=== PATIENT | male | born 1980 | race Caucasian/White ===

== ENCOUNTER 2017-09-20 13:56 | Emergency (ER) | payer BC, SELFPAY ==
[~2017-09-20] VITALS: Ht 172.7 cm; Wt 124.7 kg
[2017-09-20] MEDS ORDERED: HORMONE REPLACEMENT (14:05)
[2017-09-20] MEDS ORDERED: PROGESTERONE100 MG PO (14:06)
[2017-09-20] MEDS ORDERED: ESTRADIOL 1 MG T1 M1 PO (14:06)
[2017-09-20] MEDS ORDERED: ALDACTONE50 MG PO (14:06)
[2017-09-20] MEDS ORDERED: PROSCAR 5MG TABL5 M1 PO (14:07)
[2017-09-20 14:45] LABS: ABSOLUTE BASOPHILS 0.1 thou/uL (0.0-0.2); ABSOLUTE EOSINOPHILS 0.2 thou/uL (0.0-0.7); ABSOLUTE LYMPHOCYTES 1.7 thou/uL (0.8-5.3); ABSOLUTE MONOCYTES 0.9 thou/uL (0.0-1.2); ABSOLUTE NEUTROPHILS 8.6 thou/uL (1.6-8.1); BASOPHILS 0.6 %; EOSINOPHILS 1.4 %; HEMATOCRIT 42.3 % (42.0-52.0); LYMPHOCYTES 15.2 %; MCH 30.4 pg (26.0-34.0); MCV 92.2 fL (80.0-100.0); MONOCYTES 7.5 %; MPV 8.5 fl. (7.2-11.1); NUCLEATED RBCS 0 /100WBC; PLATELET COUNT* 303 thou/uL (150-400); POLYS 75.3 %; RBC 4.59 mil/uL (4.50-6.00); RDW-CV 13.6 % (10.5-14.5); WBC 11.4 thou/uL (4.0-11.0)
[2017-09-20 14:53] LABS: CALCIUM 9.4 mg/dL (8.5-10.1)
[2017-09-20 14:55] LABS: APTT 29.1 Seconds (25.0-31.3); PROTIME 9.8 Seconds (9.20-11.50)
[2017-09-20 14:58] LABS: ALBUMIN 3.5 g/dL (3.4-5.0); TOTAL BILIRUBIN 0.2 mg/dL (<0.1-1.0); TOTAL PROTEIN 7.3 g/dL (6.4-8.2)
[2017-09-20 16:22] VITALS: BP 121/81
== END 2017-09-20 16:23 | disposition home or self-care (01) ==
LOC: EDSEX 13:56 → M.ERS 13:56
PROVIDERS: Nurse Practitioner Family
DX: S40.021A Contusion of right upper arm, initial encounter (principal); X58.XXXA Exposure to other specified factors, initial encounter; Y93.89 Activity, other specified; Y92.89 Other specified places as the place of occurrence of the external cause; Y99.8 Other external cause status